=== PATIENT | male | born 1930 ===

== ENCOUNTER 2016-12-11 17:19 | Inpatient (IN) | payer MEDICARE ==
[2016-12-11 19:06] VITALS: BP 156/87; PULSE 74; TEMP 96.8
[2016-12-11] MEDS ORDERED: ZYLOPRIM 100MG100 MG PO (19:10)
[2016-12-11] MEDS ORDERED: LEXAPRO 10MG10 MG PO (19:11)
[2016-12-11] MEDS ORDERED: DEPAKOTE 125MG125 MG PO (19:11)
[2016-12-11] MEDS ORDERED: ARICEPT10 MG PO (19:15)
[2016-12-11] MEDS ORDERED: KLOR-CON SPRIN10 MEQ PO (19:15)
[2016-12-11] MEDS ORDERED: LASIX 40MG TABL40 MG PO (19:17)
[2016-12-11] MEDS ORDERED: TYLENOL 325MG325 MG PO (19:18)
[2016-12-11] MEDS ORDERED: DULCOLAX S10 MG/SUPP RC (19:18)
[2016-12-11] MEDS ORDERED: MELATONIN3 MG PO (19:19)
[2016-12-11] MEDS ORDERED: MIRALAX PA17 GM/Dose PO (19:20)
[2016-12-11] MEDS ORDERED: MILK OF MA400 MG/52 PO (19:21)
[2016-12-11] MEDS ORDERED: ZOFRAN 4MG T4 MG/TAB PO (19:21)
[2016-12-11 21:22] VITALS: BP 129/66; PULSE 100; TEMP 97.8
[2016-12-11 22:42] LABS: PH 5 (5-8); SQUAMOUS EPITHELIAL 0-2 /hpf; URINE APPEARANCE Hazy; URINE BACTERIA None Seen /hpf; URINE BILIRUBIN Negative (NEGATIVE); URINE BLOOD Negative (NEGATIVE); URINE COLOR Yellow; URINE GLUCOSE Negative (NEGATIVE); URINE KETONE Negative (NEGATIVE)
[2016-12-11 23:50] LABS: BASO % 0.3 % (0.0-2.0); EOS % 0.1 % (0-4.0); GRAN # 8.1 (1.4-6.5); GRAN % 74.4 % (42.2-75.2); LYMPH # 1.4 (1.2-3.4); MEAN CELL VOLUME 96 fl (80.0-100.0); MEAN CORPUSCULAR HGB CONC 33 g/dl (33.0-37.0); MEAN PLATELET VOLUME 11.2 fl (7.4-10.4); MONO # 1.3 (0.1-0.6); MONO % 11.4 % (1.7-9.3); PLATELET COUNT 194 K/mm3 (130-400); REDCELL DISTRIBUTION WIDTH-CV 13.2 % (11.5-14.5); WHITE BLOOD COUNT 10.9 K/mm3 (4.8-10.8)
[2016-12-12] VITALS (12 sets, daily range): BP systolic 99–148; BP diastolic 56–79; PULSE 69–94; TEMP 97.3–97.8
[2016-12-12 00:01] LABS: CALCIUM 9.1 mg/dL (8.4-10.2); HEMATOCRIT 34.4 % (42.0-52.0); HEMOGLOBIN 11.4 g/dl (13.5-18.0); MEAN CORPUSCULAR HEMOGLOBIN 32 pg (27.0-31.0); POTASSIUM 3.9 mmol/L (3.4-5.0)
[2016-12-12 00:03] LABS: INR 1.2 (0.8-3.0); PROTHROMBIN TIME 12.9 SECONDS (9.7-12.8)
[2016-12-12 00:06] LABS: PARTIAL THROMBOPLASTIN TIME 30.3 SECONDS (26.0-37.0)
[2016-12-13 02:00] VITALS: BP 141/76; PULSE 98; TEMP 97.8
[2016-12-13 04:17] VITALS: BP 132/59; PULSE 85; TEMP 99.3
[2016-12-13 08:04] LABS: CALCIUM 8.7 mg/dL (8.4-10.2); CREATININE, serum 0.96 mg/dL (0.66-1.25); POTASSIUM 3.7 mmol/L (3.4-5.0)
[2016-12-13 08:13] LABS: HEMATOCRIT 29.7 % (42.0-52.0)
[2016-12-13 09:31] VITALS: BP 136/65; PULSE 87; TEMP 99.9
[2016-12-13 14:01] VITALS: BP 142/69; PULSE 80
[2016-12-13 17:11] VITALS: BP 134/70; PULSE 83; TEMP 98.9
[2016-12-13 22:31] VITALS: BP 140/67; PULSE 74; TEMP 98.7
[2016-12-14 05:10] VITALS: BP 155/65; PULSE 67; TEMP 98.2
[2016-12-14 08:06] LABS: HEMOGLOBIN 9.5 g/dl (13.5-18.0)
[2016-12-14 10:25] VITALS: BP 129/93; PULSE 74; TEMP 97.6
[2016-12-14 13:13] VITALS: BP 147/69; PULSE 75; TEMP 97.5
[2016-12-14 17:15] VITALS: BP 129/71; PULSE 72; TEMP 98.6
[2016-12-14 20:17] VITALS: BP 129/66; PULSE 77; TEMP 98.5
[2016-12-15 01:18] VITALS: BP 137/91; PULSE 70; TEMP 98.2
[2016-12-15 04:44] VITALS: BP 141/64; PULSE 69; TEMP 98.4
[2016-12-15] MEDS ORDERED: ASPIRIN 32325 MG/TA1 PO (08:18)
[2016-12-15] MEDS ORDERED: TYLENOL 325MG325 MG PO (08:19)
[2016-12-15] MEDS ORDERED: VITAMINC500CH PO (08:20)
[2016-12-15] MEDS ORDERED: OYSCO 500500 M1 PO (08:20)
[2016-12-15] MEDS ORDERED: SENOKOT S 50 MG1 TAB PO (08:20)
[2016-12-15] MEDS ORDERED: NORCO 325 MG-51 TAB PO (08:21)
[2016-12-15] MEDS ORDERED: MULTI VITAMINS1 TAB PO (08:21)
[2016-12-15 08:28] LABS: HEMATOCRIT 31.9 % (42.0-52.0); HEMOGLOBIN 10.6 g/dl (13.5-18.0)
[2016-12-15 09:55] VITALS: BP 146/60; PULSE 89; TEMP 98.2
== END 2016-12-15 11:24 | DRG 482 ==
LOC: SURG 17:19
PROVIDERS: Family Medicine; Orthopaedic Surgery
PROC: 0QS606Z Reposition Right Upper Femur with Intramedullary Internal Fixation Device, Open Approach (ICD-10-PCS; principal; 2016-12-12 15:00)
DX: S72.141A Displaced intertrochanteric fracture of right femur, initial encounter for closed fracture (principal); F03.90 Unspecified dementia, unspecified severity, without behavioral disturbance, psychotic disturbance, mood disturbance, and anxiety; W08.XXXA Fall from other furniture, initial encounter; M10.9 Gout, unspecified; K59.00 Constipation, unspecified; Z87.891 Personal history of nicotine dependence; Z66 Do not resuscitate
CPT/HCPCS: 99222-AI; 99232-AI; 99239; A9284; C1713; J0690; J1100; J1170; J2060; J2250; J2270; J2704; J2795; J3010; J7030; J7120